=== PATIENT | female | born 2000 | race Caucasian/White ===

== ENCOUNTER 2018-06-24 11:58 | Day surgery (SDC) | payer OTHER ==
[~2018-06-24 11:58] MED LIST: SEVOFLURANE 15 MIN
[2018-06-24] MEDS ORDERED: MIDAZOLAM 1 MG/ML 2 ML INJ IV (16:00)
[2018-06-24] MEDS ORDERED: METOCLOPRAMIDE 10 MG INJ IV (16:00)
[2018-06-24] MEDS ORDERED: HYDROmorphONE 1 MG/5 ML IV SYRINGE IV ×2 (16:00)
[2018-06-24] MEDS ORDERED: DIPHENHYDRAMINE 50 MG INJ IV (16:00)
[2018-06-24] MEDS ORDERED: OXYCODONE/ACETAMINOPHEN (5/325) TAB PO ×2 (16:00)
[2018-06-24] MEDS ORDERED: MEPERIDINE 25 MG INJ IV (16:00)
[2018-06-24] MEDS ORDERED: LIDOCAINE 2% (SDV) 5 ML INJ (16:04)
[2018-06-24] MEDS ORDERED: ROCURONIUM 50 MG INJ (16:04)
[2018-06-24] MEDS ORDERED: SUCCINYLCHOLINE CHLORIDE 100 MG/5 ML SYG IV (16:04)
[2018-06-24] MEDS ORDERED: GLYCOPYRROLATE 0.4 MG INJ (16:04)
[2018-06-24] MEDS ORDERED: NEOSTIGMINE 3 MG/3 ML SYRINGE (16:04)
[2018-06-24] MEDS ORDERED: PROPOFOL 20 ML (16:04)
[2018-06-24] MEDS ORDERED: METOCLOPRAMIDE 10 MG INJ (16:27)
[2018-06-24] MEDS ORDERED: ONDANSETRON 4 MG INJ (16:27)
[2018-06-24] MEDS: HYDROmorphONE 1 MG/5 ML IV SYRINGE IV (17:00)
[2018-06-24] MEDS: ONDANSETRON 4 MG INJ IV (17:00)
[2018-06-24] MEDS: HYDROCODONE/APAP (5/325) TAB PO (17:37)
== END 2018-06-24 18:00 | disposition home or self-care (01) ==
LOC: SDS 11:58
DX: J03.91 Acute recurrent tonsillitis, unspecified (principal); J35.01 Chronic tonsillitis
CPT/HCPCS: 42826; 88304